=== PATIENT | male | born 1950 | race Caucasian/White ===

== ENCOUNTER → 2018-06-25 12:58 | Outpatient (CLI) | payer MEDICARE, SELFPAY | PROVIDERS: Family Provider Family Medicine; PCP Family Medicine; Visit Provider Internal Medicine Pulmonary Disease | DX: R05 Cough (principal) | CPT/HCPCS: 87015; 87070; 87077; 87101; 87116; 87186; 87205; 87206 ==

== ENCOUNTER → 2020-01-05 10:10 | Outpatient (CLI) | payer MEDICARE, SELFPAY ==
[2020-01-05 11:36] LABS: Absolute Lymphocyte Count 1.35 X10^3/uL (0.83-4.51); Basophil# 0.02 X10^3/uL; Basophil% 0.3 % (0-1); Eosinophil# 0.07 X10^3/uL; Eosinophils% 1.2 % (0-5); Hematocrit 41.1 % (40-54); Hemoglobin 13.7 g/dL (13.0-16.5); Lymphocyte # 1.35 X10^3/ul (4.0); Lymphocyte % 22.6 % (19-41); Mean Corp Hgb Conc 33.3 g/dL (32-36); Mean Corpuscular Volume 87.1 fL (80-94); Mean Platelet Vol. 11.1 fl (6.2-12.0); Monocyte# 0.52 X10^3/uL; Monocyte% 8.7 % (0-10); NRBC Flagged by Analyzer 0 % (0-5); Neutrophil # 3.99 X10^3/uL (2.7-7.7); Neutrophil % 66.7 % (47-70); Platelet Count 161 K/mm3 (150-450); RBC Distribution Width CV 14.6 % (11.6-14.6); RBC Distribution Width SD 46.2 fl (35.1-43.9); Red Blood Count 4.72 M/mm3 (4.6-6.2)
[2020-01-08 12:06] LABS: Aspirgillus flavus Negative (Neg:<1:1); Aspirgillus fumigatus Negative (Neg:<1:1); Aspirgillus niger Negative (Neg:<1:1)
[2020-01-09 16:36] LABS: Immunoglobulin E 6 IU/mL (6-495)
== END ==
PROVIDERS: PCP Family Medicine; Referring Provider Internal Medicine Pulmonary Disease; Visit Provider Internal Medicine Pulmonary Disease
DX: B44.81 Allergic bronchopulmonary aspergillosis (principal)
CPT/HCPCS: 36415; 82785; 85025; 86606

== ENCOUNTER → 2020-05-01 10:18 | Outpatient (CLI) | payer MEDICARE, SELFPAY ==
--- NOTE | 2020-05-01 10:29 | RAD_ITS ---
STUDY: X-RAY CHEST REASON FOR EXAM: Male, 69 years old. Asthma TECHNIQUE: Frontal view of the chest COMPARISON: None. FINDINGS: There is patchy airspace opacity in the lower lobes bilaterally. There are no pleural effusions. There is no pneumothorax. The heart is normal in size. The visualized osseous structures are within normal limits. RAD/Chest PA and Lateral IMPRESSION: Patchy airspace opacity in the lower lobes bilaterally which is likely infectious in etiology. Electronically Signed: Morgan Mccarthy, at 18:10 EDT Tel , Service support ,
== END ==
PROVIDERS: PCP Family Medicine; Referring Provider Internal Medicine Pulmonary Disease; Visit Provider Internal Medicine Pulmonary Disease
DX: J45.909 Unspecified asthma, uncomplicated (principal)
CPT/HCPCS: 71046; 87070; 87077; 87186; 87205

== ENCOUNTER → 2020-05-14 09:47 | Outpatient (CLI) | payer MEDICARE, SELFPAY ==
--- NOTE | 2020-05-14 11:58 | SP.MBSS_ITS ---
Modified Barium Swallow - Patient Information Study Date: 05/14/20 Study Time: 10:10 Diagnosis: Dysphagia Referring Physician: Jacob Zhang V Reason for Referral: Coughing w/ food/liquid intake ~1 month Medical History: asthma, HTN, HLD, HANNAH - uses cpap at night. *medical history obtained via patient report Current Diet Ordered: regular textures/thin liquids Dentition: Natural Teeth Mental Status: WNL Respiratory Status: Oxygenating on Room Air - Study Findings Consistencies: Thin Liquid, Pudding, Cookie - Penetration-Aspiration Scale Penetration-Aspiration Scale: OBJECTIVE ASSESSMENT OF SWALLOW FUNCTION (QUANTITATIVE ? PER TRIAL): PENETRATION / ASPIRATION SCALE (WATTS): 1 = does not enter airway 2 = enters airway/above vocal folds/ejected 3 = enters airway/above vocal folds/not ejected 4 = enters airway/contacts vocal folds/ejected 5 = enters airway/contacts vocal folds/not ejected 6 = enters airway/below vocal folds/ejected 7 = enters airway/below vocal folds/not ejected despite effort 8 = enters airway/below vocal folds/no effort VIDEOFLOROSCOPIC SCALE SCORE (WATTS): Grade I = aspiration of material that has penetrated into the laryngeal vestibule, intact cough reflex Grade II = aspiration < 10 % of the bolus, intact cough reflex Grade III = aspiration of < 10 % of the bolus, reduced cough reflex or aspiration of > 10 % of the bolus, intact cough reflex Grade IV = aspiration of > 10 % of the bolus, reduced cough reflex - Penetration-Aspiration Scale Score Thin Liquid via teaspoon Result: 1= does not enter airway 1. Thin liquid via teaspoon Result: 1= does not enter airway Thin Liquid via cup Result: 1= does not enter airway 3. Thin liquid via cup - large sip Result: 2= enter airway/above vocal folds/ejected 5. Thin liquid via cup - small sip Result: 1= does not enter airway 6. Thin Liquid via single sip from straw Result: 2= enter airway/above vocal folds/ejected 7. Thin Liquid via sequential sips from cup Result: 4= enters airway/contacts vocal folds/ejected 8. Pudding Result: 1= does not enter airway 9. Cookie Result: 1= does not enter airway 10. Thin Liquid via small single sip from cup Result: 1= does not enter airway - undercoats epiglottis during deglutition, does not enter the laryngeal vestibule 11. Thin Liquid via small single sip from cup with chin tuck Result: 4= enters airway/contacts vocal folds/ejected - Oral Phase Labial Seal: No Labial Escape Tongue Control During Bolus Hold: Cohesive bolus between tongue to palatal seal Bolus Preparation/Mastication: Timely and efficient chewing and mashing Bolus Transport/Lingual Motion: Slowed tongue motion Oral Residue: Trace residue lining oral structures - Pharyngeal Phase Initiation of Pharyngeal Swallow: Bolus head at posterior angle of ramus at first hyoid excursion Soft Palate Elevation: No bolus between soft palate and pharyngeal wall Laryngeal Elevation: Partial superior movement thyroid cart/partial apprx aryt- epig petiole Anterior Hyoid Excursion: Partial anterior movement Epiglottic Movement: Complete inversion Laryngeal Vestibule Closure at Height of Swallow: Incomplete; narrow column of air/contrast in laryngeal vestibule Pharyngeal Stripping Wave: Present - complete Pharyngoesophageal Segment Opening: Complete distension and complete duration; no obstruction of flow Tongue Base Retraction: Trace column of contrast between tongue base & post. pharyngeal wall Pharyngeal Residue: Trace residue within or on pharyngeal structures - Esophageal Phase Esophageal Clearance: Complete clearance - Difficult to view d/t positioning - Treatment Strategies Effects of Treatment Strategies Attempted:: 1. Chin Tuck - NOT EFFECTIVE - contrast entered the laryngeal vestibule more readily w/ chin tuck posture. 2. Reduced volume/rate of intake (small sip, one sip at a time) - EFFECTIVE. 3. Elimination of straw use - EFFECTIVE - Diagnosis/Impression Diagnosis: mild oropharyngeal dysphagia Impression: This patient presents with mild oropharyngeal dysphagia characterized by premature pharyngeal bolus entry resulting in suboptimal bolus location upon swallow onset. Reduced anterior hyoid movement and reduced hyolaryngeal excursion resulted in incomplete laryngeal vestibule closure. Thin liquid when consumed via small sips, one at a time, intermittently undercoated the epiglottis but did not enter the laryngeal vestibule. Transient penetration occurred w/ liquid intake via straw. Large volume sequential swallow of thin liquid resulted in poor bolus control w/ spillage to the pyriform sinuses, delayed swallow onset and inability to maintain laryngeal vestibule closure during and between swallows w/ resultant penetration which contacted the vocal folds during each sequential swallow consumed. The patient demonstrated excellent sensation to laryngeal vestibule penetration. Spontaneous cough response to penetration was effective to expel contrast from the laryngeal vestibule. Use of a chin tuck posture was ineffective to improve laryngeal vestibule closure and actually worsened airway protection w/ liquid penetrating to the vocal folds w/ this posture was trialed. Adjustments in volume and rate of liquid intake were effective to reduce penetration/aspiration risk. - Recommendations Diet: Regular Textures, Thin Liquids Compensatory Strategies: Small Bites, Small Sips, No Straws, Slow Rate, Sitting upright, Remain sitting upright for 30 minutes after PO intake, Minimize/decrease distractions - Practice good oral hygiene between meals Recommend Repeat Modified Barium Swallow: TBD Need for Skilled Speech Therapy Services: Yes - SEE COMMENTS Education Completed: Described result of evaluation., Pt understands evaluation & agrees with goals and treatment plan. - Imaces were reviewed with the patient following MBS completion to improve understanding of the deficits identified and improve comprehension of need for compensatory strategy implementation to reduce aspiration risk. Comment: Additional dysphagia intervention is not recommended at this time as the patient reports that his current symptoms, onset ~ 1 month ago, have impr ioved significantly since being given medication for thrush. If current symptoms of coughing w/ food and liquid intake continue/worsen and/or does improve/resolve w/ additional time and implementation of the recommended compensatory strategies, then outpatient dyspahgia intervention should be pursued w/ intervention to target swallow onset timing, hyolaryngeal excusrion and laryngeal vsetibule closure. The patient was provided w/ a print out of the results and recommended compensatory strategies following MBS completion to assist w/ recall and carryover implementation upon return home. Education was well received w/ the patient demonstrating sufficient comprehension to suggest successful independent follow through w/ the recommended treatment plan. - Image Count: 1,970 - Status Active ST Patient: Not Active - Contact Information Speech Therapist:: Eli Morales, [facility]IVE, [place] Email:: [email or web address] Phone:: [phone]
== END ==
PROVIDERS: PCP Family Medicine; Referring Provider Internal Medicine Pulmonary Disease; Visit Provider Internal Medicine Pulmonary Disease
DX: R13.10 Dysphagia, unspecified (principal)
CPT/HCPCS: 74230; 92611

== ENCOUNTER → 2020-06-18 14:00 | Outpatient (CLI) | payer MEDICARE, SELFPAY ==
[2020-06-18 15:53] LABS: Anion Gap 4 (5-15); Chloride 104 mmol/L (98-107); Potassium 3.3 mmol/L (3.5-5.1); Sodium Level 138 mmol/L (136-145)
== END ==
PROVIDERS: PCP Family Medicine; Referring Provider Internal Medicine Pulmonary Disease; Visit Provider Internal Medicine Pulmonary Disease
DX: R25.2 Cramp and spasm (principal)
CPT/HCPCS: 36415; 80051

== ENCOUNTER → 2021-09-23 10:47 | Outpatient (CLI) | payer MEDICARE, SELFPAY ==
[2021-09-23 11:56] LABS: Absolute Lymphocyte Count 1.99 X10^3/uL (0.83-4.51); Absolute Neutrophil Count 5.2 X10^3/uL (2.0-7.7); Basophil# 0.03 X10^3/uL; Basophil% 0.4 % (0-1); Eosinophils% 1.3 % (0-5); Hematocrit 46.7 % (40-54); Hemoglobin 15.1 g/dL (13.0-16.5); Lymphocyte # 1.99 X10^3/ul (0.83-4.51); Lymphocyte % 24.9 % (19-41); Mean Corp Hgb Conc 32.3 g/dL (32-36); Mean Corpuscular Volume 86.6 fL (80-94); Mean Platelet Vol. 11.1 fl (6.2-12.0); Monocyte# 0.56 X10^3/uL; NRBC Flagged by Analyzer 0 % (0-5); Neutrophil # 5.24 X10^3/uL (2.7-7.7); Neutrophil % 65.5 % (47-70); Platelet Count 230 K/mm3 (150-450); RBC Distribution Width CV 12.8 % (11.6-14.6); RBC Distribution Width SD 39.5 fl (35.1-43.9); Red Blood Count 5.39 M/mm3 (4.6-6.2)
== END ==
PROVIDERS: PCP Family Medicine; Referring Provider Internal Medicine Pulmonary Disease; Visit Provider Internal Medicine Pulmonary Disease
DX: J45.50 Severe persistent asthma, uncomplicated (principal)
CPT/HCPCS: 36415; 85025

== ENCOUNTER → 2022-12-23 | Outpatient (CLI) | payer MEDICARE, SELFPAY ==
--- NOTE | 2022-12-23 10:30 | PET_ITS ---
EXAMINATION: FDG PET-CT INDICATIONS: A 72-year-old male with a history of pulmonary nodularity. COMPARISON EXAMINATION: None available INDEX LESION SIZE SUV INTERPRETATION Left lower posteromedial lung field left lower lobe 1.6 max Quantitative criteria for viable neoplasm are not fulfilled. TECHNIQUE: Following the intravenous administration of 13.72 mCi of F-18 deoxyglucose via the left wrist, multiplanar image acquisitions of the head, neck, chest, abdomen and pelvis to level of mid-thigh, lower extremities obtained at one hour post radiopharmaceutical administration contemporaneously interpreted with the current CT of the head, neck, chest, abdomen and pelvis to level of mid-thigh, lower extremities dated 12/23/22 via coregistration reveal: SERUM GLUCOSE LEVEL: 110 mg/dl. HEIGHT: 71 inches. WEIGHT: 231 lbs. FINDINGS: Head/Neck: There is no evidence of abnormal increased glucose metabolism in the pharyngeal mucosal space, parapharyngeal space, bilateral-lateral and anterior neck, hypopharynx and distribution of the laryngeal structures. The visualized portion of the cerebral cortical-subcortical structures demonstrate symmetric and preserved glucose metabolism. CHEST: Increased radiopharmaceutical concentration defined in the left lower posteromedial lung field, left lower lobe. The calculated maximum standard uptake value is 1.6. Prominent radiopharmaceutical concentration is identified in the left ventricular myocardium commensurate with the [place]. Prominent tracer uptake is noted in the descending thoracic aorta and visualized abdominal aorta consistent with activated leukocytes associated with atherosclerotic plaque formation. Pertinent chest CT findings are as follows. There is atherosclerotic calcification defined in the thoracic aorta without evidence of dilatation-aneurysm formation. Coronary arterial calcification is observed. Bilateral axillary soft tissue densities are nonglucose avid. There are no additional parenchymal densities-nodules defined in the right and left hemithorax with quantitatively significant increased FDG uptake. Several locations of ground glass densities are defined in the right lower hemithorax demonstrate no evidence of quantitative significant enhanced FDG uptake. Abdomen/Pelvis: Normal physiologic distribution of the radiopharmaceutical is apparent in the hepatic (4.8) and splenic parenchyma, both renal units, bladder and visualized intestinal tract. Diffuse radiopharmaceutical concentration is noted in all four quadrants of the abdomen and pelvis. Pertinent abdomen and pelvis CT findings are as follows. Cyst formation is defined in the right kidney. There is atherosclerotic calcification defined in the abdominal aorta without evidence of dilatation-aneurysm formation. Abdominal-pelvic arterial calcification is defined. Bilateral hemipelvic and inguinal soft tissue densities with fatty hilus formation demonstrate no evidence of increased tracer uptake. Calcification is noted in the prominent sized prostate gland. Calcified phlebolith formation is noted in the left hemipelvis. Skeletal: Degenerative changes are noted in the cervical, thoracic and lumbar spine. There is no visualized sclerotic-lytic changes manifest on review of the appendicular-axial skeletal structures. PET/PET/CT Tumor Base -Thigh Init IMPRESSION: 1. NEGATIVE EXAMINATION. There is no definitive quantitative scintigraphic evidence of viable neoplasm. 2. The increase in radiopharmaceutical concentration in the left lower lung field, left lower lobe does not fulfill quantitative criteria for malignant transformation. (Mckeon et al, Annals of Internal Medicine, 138:724, 2003). 3. Metabolic and/or anatomic stability may be ensured in the left hemithorax pulmonary parenchymal abnormality with repeat FDG PET-CT and/or CT of the thorax in six-nine months if clinically indicated. (Xiu, Journal of Nuclear Medicine 45:88, P2004 Nallely, Seminars in Thoracic and Cardiovascular Surgery 14:292, 2002). Electronic Signature Aldo Carmen D.O. Accurate Quantification of SUVs for this report are calculated using the exclusive [employer]. (U.S. Patent No. [id number] [id number] [phone] B2 [phone] [place] patent [id number]). Standardization and correction of the FDG SUV metric via [employer]QUAN technology allow for vendor non-specific objective quantitative examination comparison and optimization of the sensitivity and specificity of the FDG PET-CT examination. Electronically Signed: Aldo Carmen, at 22:14 EDT ,
== END | disposition home or self-care (01) ==
PROVIDERS: PCP Family Medicine; Referring Provider Internal Medicine Pulmonary Disease; Visit Provider Internal Medicine Pulmonary Disease
DX: R91.8 Other nonspecific abnormal finding of lung field (principal)
CPT/HCPCS: 78815; A9552

== ENCOUNTER → 2022-12-30 | Outpatient (CLI) | payer MEDICARE, SELFPAY | END | disposition home or self-care (01) | LOC: LABSPEC 17:50 | PROVIDERS: PCP Family Medicine; Referring Provider Internal Medicine Pulmonary Disease; Visit Provider Internal Medicine Pulmonary Disease | DX: R05.9 Cough, unspecified (principal); J45.909 Unspecified asthma, uncomplicated | CPT/HCPCS: 87070; 87077; 87101; 87205 ==

== ENCOUNTER 2023-01-14 13:20 | Day surgery (SDC) | payer MEDICARE, SELFPAY ==
[2023-01-14] VITALS (7 sets, daily range): BP systolic 107–152; BP diastolic 63–96; PULSE 48–52; RESP 16–18; TEMP 36.8–37.1; O2SAT 96–98; BMI 35.4
--- NOTE | 2023-01-14 | FLU_PTH ---
PATIENT: MELISSA EDEN LOC: EN U#:[id number] AGE/SX: 72/M ROOM: RE01/14/[address]: Dr. Jacob Zhang MD : 1950 BED: DIS: 01/14/2023 SPEC #: [id number] RECD: 01/14/23 15:11 STATUS: ADELIA DEDRICK #: [id number] LLOYD: 01/14/23 00:[address]: Jacob Zhang V DEPT: CYTOLOGY RECD BY: Kellen Edmond ENTERED: 01/15/23 10:12 SP TYPE: Fluid OTHR DR: Dr. Thom Tyler MD Tissues: Bronchus of left lower lobe Procedures: Special Stain Group II Special Stain Group I Surgery Specimen Level IV AFB Stain (control) GMS Stain (control) Cytospin Fluid HEADER OPERATION: Bronchoscopy (MAC) with BAL PRE-OP DIAGNOSIS: Asthma, pulmonary lesion TISSUE SUBMITTED: LLL fluid for cytology DIAGNOSIS CYTOLOGY LLL, BAL fluid (cytospin and cell block): Negative for malignant cells. See comment. VINH:lauri 01/16/2023 COMMENT Special stains for acid fast bacilli and fungi are negative for organisms; matched controls are appropriate. Clinical correlation and appropriate follow up are necessary. CYTOLOGY STUDY Slides are reviewed. CYTOLOGY GROSS Received is 30 ml of light cloudy fluid labeled with the patient's name and and designated per the requisition as LLL. Submitted for cytology preparation including cell block. / lauri 01/15/2023 TC:5 CPT: 58336, 88144, 34915 x2
[2023-01-14] MEDS: Lidocaine 2% (5ml sdv) 5 ML VIAL.MPF (13:30)
[2023-01-14] MEDS: Lidocaine Jelly 2% 20 ML Syringe (URO-JET) 1 APPLIC (13:31)
[2023-01-14] MEDS: Phenylephrine 0.25% 15 ML NASAL.SRY 15 SPRAY NASAL (13:32)
[2023-01-14] MEDS: Lactated Ringers 1,000 ML 15 ML IV (13:49)
--- NOTE | 2023-01-14 15:06 | OP.BRONCH_ITS ---
Patient Name: David Fox Procedure Date: 01/14/2023 2:29 PM Date of : 1950 Age: 72 Procedure: Bronchoscopy Indications: Atelectasis of the left lower lobe, Diagnostic bronchoalveolar lavage Providers: Jacob Zhang MD Referring MD: Jacob Zhang MD Medicines: Lidocaine applied to nares and subglottic space, Lidocaine 2% applied to cords 2 mL Complications: No immediate complications Procedure: Pre-Anesthesia Assessment: - A History and Physical has been performed. The patient's medications, allergies and sensitivities have been reviewed. - Airway Examination: small/crowded oropharyngeal airway. After I obtained informed consent, the scope was passed under direct vision. Throughout the procedure, the patient's blood pressure, pulse, and oxygen saturations were monitored continuously. The bronchoscope was introduced through the right nostril and advanced to the tracheobronchial tree of both lungs. The procedure was accomplished without difficulty. The patient tolerated the procedure well. The total duration of the procedure was 9 minutes. Moderate Sedation: An independent trained observer was present and continuously monitored the patient. Findings: Respiratory tract: The larynx is normal. The vocal cords appear normal. The subglottic space is normal, but the trachea is not normal. The francisco is sharp. The entire tracheobronchial tree was examined to at least the first subsegmental level. Bronchial mucosa and anatomy are normal; there are no endobronchial lesions, and no secretions. The larynx is normal. The vocal cords appear normal. The subglottic space is normal, but the trachea is not normal. The francisco is sharp. The entire tracheobronchial tree was examined to at least the first subsegmental level. Bronchial mucosa and anatomy are normal; there are no endobronchial lesions, and no secretions. The larynx is normal. The vocal cords appear normal. The subglottic space is normal, but the trachea is not normal. The francisco is sharp. The entire tracheobronchial tree was examined to at least the first subsegmental level. Bronchial mucosa and anatomy are normal; there are no endobronchial lesions, and no secretions. Washings were obtained in the posterior basal segment of the left lower lobe and sent for cell count, bacterial culture, viral smears & culture, and fungal & AFB analysis and cytology. The return was milky and mucoid. Impression: - Atelectasis of the left lower lobe - Bronchoalveolar lavage - Washings were obtained. Recommendation: - Await test results. - Await test results. Procedure Code(s): --- Professional --- 59635, Bronchoscopy, rigid or flexible, including fluoroscopic guidance, when performed; diagnostic, with cell washing, when performed (separate procedure) Diagnosis Code(s): --- Professional --- J98.11, Atelectasis CPT copyright 2017 [employer]. All rights reserved. The codes documented in this report are preliminary and upon neon electrician review may be revised to meet current compliance requirements. MD Jacob Garcia MD 01/14/2023 3:06:19 PM This report has been signed electronically. Number of Addenda: 0 Note Initiated On: 01/14/2023 2:29 PM
[2023-01-14 15:17] LABS: Cytology, Body Fluid / CSF SEE PATHOLOGY REPORT
[2023-01-14 17:35] LABS: Lymphocytes 5 %; Macrophages 1 %; Monocytes 3 %; Neutrophil (Segs) 88 %; Other Cell Type/BF 3 %
[2023-01-14 17:36] LABS: Color/Body Fluid COLORLESS; Source- Body Fluid BRONCHIAL LAVAGE
[2023-01-14 17:37] LABS: Appearance/Body Fluid CLOUDY; Red Cell Count/Body Fluid 10 /mm3; White Blood Count/Body Fluid 420 /mm3
[2023-01-14 17:41] LABS: Body Fluid QC Type(s) BF1Q
[2023-01-15 13:04] LABS: Pathologist Comment/Body Fluid Reviewed
== END 2023-01-14 15:49 | disposition home or self-care (01) ==
LOC: EN 13:20 → AC 13:21
PROVIDERS: PCP Family Medicine; Referring Provider Internal Medicine Pulmonary Disease; Visit Provider Internal Medicine Pulmonary Disease
PROC: 0BJ08ZZ Inspection of Tracheobronchial Tree, Via Natural or Artificial Opening Endoscopic (ICD-10-PCS; CPT 31622; principal; 2023-01-14 14:15)
DX: J98.11 Atelectasis (principal); J45.50 Severe persistent asthma, uncomplicated; G47.33 Obstructive sleep apnea (adult) (pediatric); I10 Essential (primary) hypertension; F41.9 Anxiety disorder, unspecified; F32.A Depression, unspecified; E78.00 Pure hypercholesterolemia, unspecified; Z87.891 Personal history of nicotine dependence; Z79.82 Long term (current) use of aspirin; Z79.899 Other long term (current) drug therapy
CPT/HCPCS: 31622; 87015; 87070; 87077; 87101; 87116; 87186; 87205; 87206; 88108; 88305; 88312; 88313; 89050; J7120

== ENCOUNTER → 2023-02-11 | Outpatient (CLI) | payer MEDICARE, SELFPAY ==
--- NOTE | 2023-02-11 08:30 | RAD_ITS ---
STUDY: X-RAY CHEST REASON FOR EXAM: Male, 72 years old. SOB TECHNIQUE: Frontal and lateral views of the chest. COMPARISON: 05/01/2020. FINDINGS: There is hyperinflation of the lungs consistent with chronic obstructive lung disease (COPD). Scarring in both lung bases. No focal infiltrates. No gross effusions. Normal size heart. Normal mediastinum and lacy. Normal visualized pulmonary arteries. There is atherosclerotic tortuosity of the aortic arch and descending thoracic aorta. There are diffuse degenerative changes of the visualized thoracic spine. Normal visualized ribs, clavicles, and shoulders. There is no demonstrated abnormality of the visualized soft tissue structures of the upper abdomen. RAD/Chest PA and Lateral IMPRESSION: COPD. No acute chest disease. Electronically Signed: Vijay Soares MD at 17:06 EDT ,
== END | disposition home or self-care (01) ==
LOC: RAD 08:24
PROVIDERS: PCP Family Medicine; Referring Provider Internal Medicine Pulmonary Disease; Visit Provider Internal Medicine Pulmonary Disease
DX: R91.1 Solitary pulmonary nodule (principal); R06.02 Shortness of breath
CPT/HCPCS: 71046

== ENCOUNTER → 2024-09-09 | Outpatient (CLI) | payer MEDICARE, SELFPAY ==
--- NOTE | 2024-09-09 16:29 | CT_ITS ---
STUDY: CT MAXILLOFACIAL SINUSES REASON FOR EXAM: Male, 73 years old. Streptococcus pneumoniae as the cause of diseases classified else, asthma, sinusitis RADIATION DOSAGE (If Supplied By Facility): CTDIvol = ( 23.44 ) mGy, DLP = ( 1743.04 ) mGycm TECHNIQUE: The patient was scanned in a multi detector CT scanner. High resolution axial imaging was performed without the administration of intravenous contrast material. Sagittal and coronal images were reconstructed. Individualized dose optimization techniques were used for this CT. COMPARISON: None. FINDINGS: FRONTAL SINUSES: Normal aeration, without mucosal inflammatory disease. ETHMOIDAL SINUSES: Normal aeration, without mucosal inflammatory disease. MAXILLARY SINUSES: There is a 1.9 cm x 1.4 cm polyp or retention cyst at the base of the right maxillary sinus. Mild degree of mucosal thickening of the maxillary sinuses bilaterally. SPHENOIDAL SINUSES: Normal aeration, without mucosal inflammatory disease. There is patency of the bilateral maxillary infundibuli with normal uncinate processes, ethmoid bullae, and hiatus semilunaris. Normal bilateral middle turbinates. There is hypertrophy of the left inferior nasal turbinate. There is a right sided nasal septal deviation, but without a nasal septal spur. There is patency of the bilateral nasal airways. The visualized osseous structures are normal. The visualized bilateral orbital contents are normal. CT/Sinus/Facial Bone IMPRESSION: Mild degree of mucosal thickening in the maxillary sinuses bilaterally with evidence of a 1.9 cm x 1.4 cm polyp or retention cyst at the base of the right maxillary sinus. Nasal septal deviation towards the right side of the midline. There is hypertrophy of the left inferior nasal turbinate. Electronically Signed: Tad Elder MD at 13:33 EST ,
== END | disposition home or self-care (01) ==
LOC: CT 16:26
PROVIDERS: PCP Family Medicine; Referring Provider Internal Medicine Pulmonary Disease; Visit Provider Internal Medicine Pulmonary Disease
DX: J15.4 Pneumonia due to other streptococci (principal); J45.50 Severe persistent asthma, uncomplicated; J32.9 Chronic sinusitis, unspecified
CPT/HCPCS: 70486

== ENCOUNTER → 2025-07-17 | Outpatient (CLI) | payer MEDICARE, SELFPAY | END | disposition home or self-care (01) | LOC: LABSPEC 08:55 | PROVIDERS: PCP Family Medicine; Referring Provider Internal Medicine Pulmonary Disease; Visit Provider Internal Medicine Pulmonary Disease | DX: J45.50 Severe persistent asthma, uncomplicated (principal) | CPT/HCPCS: 87070; 87205 ==

== ENCOUNTER → 2025-07-27 | Outpatient (CLI) | payer MEDICARE, SELFPAY | END | disposition home or self-care (01) | LOC: LABSPEC 10:45 | PROVIDERS: PCP Family Medicine; Referring Provider Internal Medicine Pulmonary Disease; Visit Provider Internal Medicine Pulmonary Disease | DX: J45.909 Unspecified asthma, uncomplicated (principal) | CPT/HCPCS: 87070; 87077; 87205 ==